=== PATIENT | male | born 1975 | race Caucasian/White ===

== ENCOUNTER → 2017-01-29 | Outpatient (CLI) | payer OTHER | END | disposition home or self-care (01) | LOC: RAD.S 01-26 16:00 | DX: Z91.81 History of falling (principal); M47.817 Spondylosis without myelopathy or radiculopathy, lumbosacral region ==

== ENCOUNTER → 2017-02-05 | Outpatient (CLI) | payer OTHER | END | disposition home or self-care (01) | LOC: RAD.S 16:19 | DX: M25.572 Pain in left ankle and joints of left foot (principal) ==

== ENCOUNTER → 2017-02-12 | Outpatient (CLI) | payer OTHER, SELFPAY | END | disposition home or self-care (01) | LOC: RAD.S 07:17 | DX: M54.5 Low back pain (principal); R20.0 Anesthesia of skin; M48.06 Spinal stenosis, lumbar region ==